=== PATIENT | female | born 1970 | race African-American/Black ===

== ENCOUNTER 2018-08-18 20:19 | Inpatient (IN) | payer BC ==
[~2018-08-18] VITALS: Ht 30.5 cm; Wt 74.9 kg
[2018-08-18] MEDS ORDERED: SODIUM CHLORIDE 0.9% 1,000 ML IVB ONE (21:27)
[2018-08-18] MEDS ORDERED: ONDANSETRON HCL 4 MG/2 ML VIAL IV ONE (21:30)
[2018-08-18] MEDS ORDERED: MEPERIDINE HCL (25 MG/ML) 1ML VIAL IV ONE (21:30)
[2018-08-18] MEDS ORDERED: ASPirin 81 mg TAB PO ONE (21:30)
[2018-08-18 22:10] LABS: Basophils # (auto) 0.1 uL; Basophils % (auto) 1.3 % (0.0-2.0); Eosinophils # (auto) 0.1 uL; Eosinophils % (auto) 1.4 % (0.0-7.0); Hematocrit 36.9 % (36.0-46.0); Hemoglobin 12.2 g/dL (12.2-16.2); Lymphocytes % (auto) 43.6 % (10.0-50.0); Mean Corpuscular Hemoglobin 30.8 pg (28.0-32.0); Mean Corpuscular Volume 93.2 fL (80.0-100.0); Monocytes # (auto) 0.4 uL; Monocytes % (auto) 5.6 % (0.0-12.0); Neutrophils # (auto) 3.3 uL; Neutrophils % (auto) 48.1 % (37.0-80.0); Nucleated Red Blood Cells % 0.2 %; Platelet Count (auto) 280 10^3/uL (140-450); Red Blood Cells 3.96 10^6/uL (4.0-5.20); Red Cell Distribution Width 14.1 % (11.8-14.3); White Blood Cell 6.9 10^3/uL (4.4-10.8)
[2018-08-18 22:19] LABS: Alanine Aminotransferase 38 U/L (13-56); Anion Gap 8 (5-15); Aspartate Aminotransferase 32 U/L (15-37); BUN/Creatinine Ratio 15.4; Blood Urea Nitrogen 14 mg/dL (7-18); Calcium 8.5 mg/dL (8.5-10.1); Carbon Dioxide 25 mmol/L (21-32); Chloride 107 mmol/L (98-107); GFR African American 84 mL/min; GFR Non-African American 70 mL/min; Glucose 83 mg/dL (74-106); Magnesium 2.3 mg/dL (1.6-2.6); Potassium 3.2 mmol/L (3.5-5.1); Sodium 140 mmol/L (136-145)
[2018-08-18 22:24] LABS: Alkaline Phosphatase 97 U/L (45-117); Bilirubin, Total 0.3 mg/dL (0.2-1.0)
[2018-08-18 22:36] LABS: INR 0.98 (0.9-1.15); Partial Thromboplastin Time 25.7 sec (23.78-33.04); Prothrombin Time 10.5 sec (9.27-12.13)
[2018-08-18 22:59] LABS: Urine Bacteria FEW /hpf (None Seen); Urine Blood Negative /uL (Negative); Urine Specific Gravity 1.005 (1.001-1.035); Urine WBC 14 /hpf (0 - 5)
[2018-08-19] MEDS ORDERED: IOHEXOL 350 MG/ML 100ML IJ ONE (00:04)
[2018-08-19] MEDS ORDERED: NITROGLYCERIN 0.4 MG SL TAB SL PRN (04:45)
[2018-08-19] MEDS ORDERED: TEMAZEPAM 15 MG CAP PO PRN (04:45)
[2018-08-19] MEDS ORDERED: ONDANSETRON HCL 4 MG/2 ML VIAL IV PRN (04:45)
[2018-08-19] MEDS ORDERED: HYDROcodone-ACET 5/325MG TAB PO PRN (04:45)
[2018-08-19] MEDS ORDERED: POTASSIUM CHL 20 Meq TABLET PO ONE (04:45)
[2018-08-19] MEDS ORDERED: ACETAMINOPHEN 325 MG TAB PO PRN (04:45)
[2018-08-19] MEDS: LEVOTHYROXINE SODIUM 25 MCG TAB PO SCH (06:51)
[2018-08-19] MEDS: cefTRIAXone 1GM/50ML D5W 50 ML IV SCH (08:48)
[2018-08-19] MEDS: ASPirin 81 mg TAB PO SCH (10:00)
[2018-08-19] MEDS: FAMOTIDINE 20 MG TAB PO SCH ×2 (10:00→21:46)
--- NOTE | 2018-08-19 21:53 | NUR ---
Telemetry admit from ER NAEEMKAREL admitted to Telemetry unit after SBAR received. Patient oriented to Aj Love, primary RN, unit, room, bed, and unit policies regarding patient care and visiting hours. Patient now on continuous telemetry monitoring, tele box # [id number] and telemetry reading on arrival to unit is sinus bradycardia. Patient weighed by bedscale and encouraged to call if they need something. All questions and concerns addressed, patient verbalized understanding.
[2018-08-19 22:00] VITALS: BP 108/71
[2018-08-20] MEDS ORDERED: AMLO5TAB13 PO (00:57)
[2018-08-20] MEDS ORDERED: COLCPOW2 PO (00:57)
[2018-08-20] MEDS ORDERED: CETI1TAB36 PO (00:57)
[2018-08-20] MEDS ORDERED: PANT40TA2 PO (00:57)
[2018-08-20 05:52] VITALS: BP 101/66
[2018-08-20 06:19] LABS: Basophils # (auto) 0.1 uL; Basophils % (auto) 1.4 % (0.0-2.0); Eosinophils # (auto) 0.2 uL; Eosinophils % (auto) 4.3 % (0.0-7.0); Hematocrit 37.6 % (36.0-46.0); Hemoglobin 12.5 g/dL (12.2-16.2); Lymphocytes # (auto) 2.2 uL; Lymphocytes % (auto) 43.3 % (10.0-50.0); Mean Corpuscular Hemoglobin 31.2 pg (28.0-32.0); Mean Corpuscular Hgb Conc. 33.2 g/dL (32.0-36.0); Mean Corpuscular Volume 93.9 fL (80.0-100.0); Monocytes # (auto) 0.3 uL; Monocytes % (auto) 6.6 % (0.0-12.0); Neutrophils # (auto) 2.2 uL; Neutrophils % (auto) 44.4 % (37.0-80.0); Nucleated Red Blood Cells % 0.1 %; Platelet Count (auto) 264 10^3/uL (140-450); Red Blood Cells 4.01 10^6/uL (4.0-5.20); Red Cell Distribution Width 14.3 % (11.8-14.3)
[2018-08-20 06:33] LABS: Anion Gap 4 (5-15); Blood Urea Nitrogen 14 mg/dL (7-18); Carbon Dioxide 28 mmol/L (21-32); Chloride 107 mmol/L (98-107); Glucose 84 mg/dL (74-106); Potassium 4.2 mmol/L (3.5-5.1); Sodium 139 mmol/L (136-145)
[2018-08-20 06:41] LABS: BUN/Creatinine Ratio 12.5; Calcium 9.4 mg/dL (8.5-10.1); GFR African American 66 mL/min; GFR Non-African American 55 mL/min
[2018-08-20] MEDS: LEVOTHYROXINE SODIUM 25 MCG TAB PO SCH (06:44)
[2018-08-20 08:00] VITALS: BP 114/68
[2018-08-20 08:39] VITALS: BP 114/68
[2018-08-20] MEDS: cefTRIAXone 1GM/50ML D5W 50 ML IV SCH (08:39)
[2018-08-20] MEDS: FAMOTIDINE 20 MG TAB PO SCH (09:57)
[2018-08-20] MEDS: ASPirin 81 mg TAB PO SCH (09:57)
[2018-08-20 12:46] VITALS: BP 110/70
--- NOTE | 2018-08-20 14:20 | NUR ---
Received report from BETH Andujar and assumed care of patient.
--- NOTE | 2018-08-20 15:44 | NUR ---
Seen by Dr House at the bedside and d'cd patient home.
[2018-08-20 16:34] VITALS: BP 121/78
--- NOTE | 2018-08-20 17:00 | NUR ---
Discharge instructions given as ordered. Encourage to follow up with PMD as instructed. All questions and concerns addressed. Patient verbalized understanding. IV removed with catheter intact, pressure dressing applied. Telemetry unit returned to [facility]. Off work note signed by Dr House given to the patient.Awaiting family for transportation.
[2018-08-20 17:19] VITALS: BP 121/78
--- NOTE | 2018-08-20 19:40 | NUR ---
Patient taken to vehicle via wheelchair with all personal belongings, accompanied by family member. No distress noted at time of departure.
== END 2018-08-20 19:51 | disposition home or self-care (01) | DRG 690 ==
LOC: ER 20:21 → TELE 08-19 04:45 → TELE-WESTW 08-19 21:46
PROVIDERS: ADMIT Nurse Practitioner; ATTEND Internal Medicine
DX: N39.0 Urinary tract infection, site not specified (principal); R07.89 Other chest pain; E03.9 Hypothyroidism, unspecified; E78.5 Hyperlipidemia, unspecified; E87.5 Hyperkalemia; E87.6 Hypokalemia; I08.0 Rheumatic disorders of both mitral and aortic valves; I12.9 Hypertensive chronic kidney disease with stage 1 through stage 4 chronic kidney disease, or unspecified chronic kidney disease; J45.909 Unspecified asthma, uncomplicated; R79.1 Abnormal coagulation profile; Z79.82 Long term (current) use of aspirin; Z82.49 Family history of ischemic heart disease and other diseases of the circulatory system; Z90.710 Acquired absence of both cervix and uterus; Z88.5 Allergy status to narcotic agent; Z91.010 Allergy to peanuts; Z88.8 Allergy status to other drugs, medicaments and biological substances; Z91.018 Allergy to other foods
CPT/HCPCS: 36415; 71045; 80048; 80053; 81001; 83735; 83880; 84443; 84484; 85025; 85379; 85610; 85730; 87086; 93005; 93306; 94761; 96361; 96374; 96375; G0378; J0696; J2405

== ENCOUNTER 2019-12-02 11:45 | Emergency (ER) | payer BC, MEDICAID ==
[~2019-12-02] VITALS: Ht 162.6 cm; Wt 68.0 kg
[~2019-12-02 11:45] MED LIST: AMLO5TAB15 PO; CETI1TAB36 PO; COLCPOW2 PO; PANT40TA2 PO
[2019-12-02] MEDS ORDERED: KETOROLAC TROMETH 60MG/2ML VIAL IM ONE (12:15)
[2019-12-02 12:23] VITALS: BP 128/96
== END 2019-12-02 13:12 | disposition home or self-care (01) ==
LOC: ER 11:45
DX: M51.17 Intervertebral disc disorders with radiculopathy, lumbosacral region (principal); J45.909 Unspecified asthma, uncomplicated; I10 Essential (primary) hypertension; G89.29 Other chronic pain; Z90.710 Acquired absence of both cervix and uterus; Z88.6 Allergy status to analgesic agent; Z88.5 Allergy status to narcotic agent; Z91.011 Allergy to milk products; Z79.899 Other long term (current) drug therapy
CPT/HCPCS: 72131; 96372; 99284; J1885

== ENCOUNTER 2020-09-16 10:53 | Emergency (ER) | payer BC, MEDICAID ==
[~2020-09-16] VITALS: Ht 162.6 cm; Wt 72.6 kg
[~2020-09-16 10:53] MED LIST changes: +AMLO-489 PO; -AMLO5TAB15 PO
[2020-09-16] MEDS ORDERED: HYDROmorphone HCL 2 MG/ML VL IV ONE (11:15)
[2020-09-16] MEDS ORDERED: SODIUM CHLORIDE 0.9% 500 ML IVB ONE (11:15)
[2020-09-16] MEDS ORDERED: ONDANSETRON HCL 4 MG/2 ML VIAL IV ONE (11:15)
[2020-09-16 11:27] LABS: Basophils # (auto) 0.1 10 ^3/uL (0-0.2); Basophils % (auto) 0.9 % (0.0-2.0); Eosinophils # (auto) 0.2 10 ^3/uL (0-0.8); Eosinophils % (auto) 2.6 % (0.0-7.0); Hematocrit 39.7 % (36.0-46.0); Hemoglobin 13.3 g/dL (12.2-16.2); Lymphocytes # (auto) 1.8 10 ^3/uL (0.4-5.4); Lymphocytes % (auto) 24.9 % (10.0-50.0); Mean Corpuscular Hemoglobin 31.1 pg (28.0-32.0); Mean Corpuscular Hgb Conc. 33.5 g/dL (32.0-36.0); Mean Corpuscular Volume 92.9 fL (80.0-100.0); Monocytes # (auto) 0.3 10 ^3/uL (0-1.3); Monocytes % (auto) 4.2 % (0.0-12.0); Neutrophils % (auto) 67.4 % (37.0-80.0); Nucleated Red Blood Cells % 0.2 %; Platelet Count (auto) 292 10^3/uL (140-450); Red Blood Cells 4.28 10^6/uL (4.0-5.20); Red Cell Distribution Width 14.1 % (11.8-14.3); White Blood Cell 7.3 10^3/uL (4.4-10.8)
[2020-09-16 11:46] LABS: Potassium 3.8 mmol/L (3.5-5.1)
[2020-09-16 11:53] LABS: Albumin 4.3 g/dL (3.4-5.0); BUN/Creatinine Ratio 14.6; Bilirubin, Total 0.4 mg/dL (0.2-1.0); Calcium 9.3 mg/dL (8.5-10.1); Total Protein 8.3 g/dL (6.4-8.2)
[2020-09-16 12:02] LABS: Urine Bacteria FEW /hpf (None Seen); Urine Blood 3+ /uL (Negative); Urine Specific Gravity 1.018 (1.001-1.035); Urine WBC 814 /hpf (0 - 5); Urine WBC Clumps PRESENT /hpf (None Seen)
[2020-09-16] MEDS ORDERED: cefTRIAXone 1GM/50ML D5W 50 ML IV ONE (12:30)
[2020-09-16 12:40] VITALS: BP 120/77
== END 2020-09-16 12:50 | disposition home or self-care (01) ==
LOC: ER 10:53
DX: N39.0 Urinary tract infection, site not specified (principal); I10 Essential (primary) hypertension; J45.909 Unspecified asthma, uncomplicated; Z90.710 Acquired absence of both cervix and uterus; Z88.6 Allergy status to analgesic agent; Z88.8 Allergy status to other drugs, medicaments and biological substances; Z91.018 Allergy to other foods
CPT/HCPCS: 36415; 74176; 80053; 81001; 83690; 85025; 96361; 96374; 99285; J1170; J2405; J7040; 93005

== ENCOUNTER → 2020-09-23 | Outpatient (CLI) | payer BC, MEDICAID | END | disposition home or self-care (01) | LOC: LAB 11:42 | PROVIDERS: ATTEND Internal Medicine Pulmonary Disease | DX: Z01.812 Encounter for preprocedural laboratory examination (principal); Z20.822 Contact with and (suspected) exposure to COVID-19 | CPT/HCPCS: 36415; 87426 ==

== ENCOUNTER → 2020-09-24 | Outpatient (CLI) | payer BC, MEDICAID ==
[~2020-09-24] MED LIST changes: +ALBUTEROL SULF 2.5 MG/0.5ML(0.5%) NEB SOLN ONE
== END | disposition home or self-care (01) ==
LOC: RT 08:34
PROVIDERS: ATTEND Internal Medicine Pulmonary Disease
DX: R06.00 Dyspnea, unspecified (principal)
CPT/HCPCS: 94060

== ENCOUNTER 2021-01-07 08:54 | Emergency (ER) | payer BC, MEDICAID ==
[~2021-01-07] VITALS: Ht 162.6 cm; Wt 73.5 kg
[~2021-01-07 08:54] MED LIST changes: -ALBUTEROL SULF 2.5 MG/0.5ML(0.5%) NEB SOLN ONE
[2021-01-07 09:16] VITALS: BP 160/77
== END 2021-01-07 10:32 | disposition home or self-care (01) ==
LOC: ER 08:54
DX: M75.32 Calcific tendinitis of left shoulder (principal); J45.909 Unspecified asthma, uncomplicated; I10 Essential (primary) hypertension; Z90.710 Acquired absence of both cervix and uterus; Z88.6 Allergy status to analgesic agent; Z88.8 Allergy status to other drugs, medicaments and biological substances; Z91.018 Allergy to other foods
CPT/HCPCS: 73030

== ENCOUNTER 2021-08-04 01:29 | Emergency (ER) | payer BC, MEDICAID ==
[~2021-08-04] VITALS: Ht 170.2 cm; Wt 77.1 kg
[2021-08-04 01:58] LABS: Basophils # (auto) 0.1 10 ^3/uL (0-0.2); Basophils % (auto) 1.3 % (0.0-2.0); Eosinophils # (auto) 0.3 10 ^3/uL (0-0.8); Eosinophils % (auto) 4.8 % (0.0-7.0); Hematocrit 37.6 % (36.0-46.0); Hemoglobin 12.7 g/dL (12.2-16.2); Lymphocytes % (auto) 42.7 % (10.0-50.0); Mean Corpuscular Hemoglobin 31.1 pg (28.0-32.0); Mean Corpuscular Hgb Conc. 33.7 g/dL (32.0-36.0); Mean Corpuscular Volume 92.4 fL (80.0-100.0); Monocytes # (auto) 0.4 10 ^3/uL (0-1.3); Monocytes % (auto) 5.5 % (0.0-12.0); Neutrophils # (auto) 3.3 10 ^3/uL (1.6-8.6); Neutrophils % (auto) 45.7 % (37.0-80.0); Nucleated Red Blood Cells % 0.1 %; Red Blood Cells 4.07 10^6/uL (4.0-5.20); Red Cell Distribution Width 14.5 % (11.8-14.3); White Blood Cell 7.1 10^3/uL (4.4-10.8)
[2021-08-04 02:07] LABS: Albumin 3.8 g/dL (3.4-5.0); BUN/Creatinine Ratio 17.6; Calcium 8.6 mg/dL (8.5-10.1); Potassium 4.1 mmol/L (3.5-5.1)
[2021-08-04 02:09] LABS: Salicylate < 1.7 mg/dL (2.8-20.0)
[2021-08-04 02:10] LABS: Bilirubin, Total 0.2 mg/dL (0.2-1.0); Total Protein 7.9 g/dL (6.4-8.2)
[2021-08-04 02:25] LABS: Amphetamine Screen, Urine NEGATIVE (NEGATIVE); Barbiturate Scree,Urine NEGATIVE (NEGATIVE); Benzodiazephine Screen, Urine NEGATIVE (NEGATIVE); Cannabinoid Screen, Urine NEGATIVE (NEGATIVE); Opiate Scree,Urine NEGATIVE (NEGATIVE); Phencyclidine Screen, Urine NEGATIVE (NEGATIVE)
[2021-08-04 02:28] LABS: Cocaine Screen, Urine NEGATIVE (NEGATIVE)
[2021-08-04 02:46] LABS: Acetaminophen < 2.0 ug/mL (10-30)
[2021-08-04 02:51] LABS: Urine Bacteria FEW /hpf (None Seen); Urine Blood Negative /uL (Negative); Urine Specific Gravity 1.007 (1.001-1.035); Urine WBC 5 /hpf (0 - 5)
[2021-08-04 07:28] VITALS: BP 139/86
== END 2021-08-04 07:39 | disposition home or self-care (01) ==
LOC: EDUNIT# 01:29 → EDBD 01:29 → ER 01:33
DX: R41.82 Altered mental status, unspecified (principal); J45.909 Unspecified asthma, uncomplicated; I10 Essential (primary) hypertension; Z90.710 Acquired absence of both cervix and uterus; Z88.6 Allergy status to analgesic agent; Z88.8 Allergy status to other drugs, medicaments and biological substances
CPT/HCPCS: 36415; 70450; 71045; 80053; 80307; 80320; 80329; 81001; 85025; 93005

== ENCOUNTER 2023-01-08 06:55 | Day surgery (SDC) | payer BC, MEDICAID ==
[~2023-01-08] VITALS: Ht 162.6 cm; Wt 69.9 kg
[~2023-01-08 06:55] MED LIST changes: +ALBUAER3 IN; -AMLO-489 PO; -COLCPOW2 PO; +FLUT1AER17 IN; +LOSA100T58 PO
[2023-01-08] MEDS ORDERED: ROCURONIUM 10MG/ML 10ML VIAL IV ONE (07:07)
[2023-01-08] MEDS ORDERED: SUCCINYLCHOLINE CHLORIDE 20 MG/ML 10ML VIAL IV ONE (07:07)
[2023-01-08] MEDS ORDERED: MIDAZOLAM HCL 2MG/2ML 2ml VIAL (1mg/ml) ONE (07:10)
[2023-01-08] MEDS ORDERED: fentaNYL CITRATE 100 MCG/2 ML VL ONE (07:10)
[2023-01-08] MEDS ORDERED: MEPERIDINE HCL (50 MG/ML) 1 ML VIAL ONE (07:11)
[2023-01-08] MEDS ORDERED: PROPOFOL 10 MG/ML 20 ML IV ONE (07:11)
[2023-01-08] MEDS ORDERED: SODIUM CHLORIDE LOCK 10 ML ONE (07:11)
[2023-01-08] MEDS ORDERED: ONDANSETRON HCL 4 MG/2 ML VIAL ONE (07:11)
[2023-01-08] MEDS ORDERED: BUPIVACAINE 0.25% INJ 50ML VIAL ONE (07:22)
[2023-01-08] MEDS ORDERED: ceFAZolin 1GM/50ML 100 ML IV ONE (07:32)
[2023-01-08] MEDS ORDERED: METOCLOPRAMIDE HCL 5MG/ml INJ 2ml VIAL IV PRN (07:45)
[2023-01-08] MEDS ORDERED: ACCU-CHEK COMFORT CURVE STRIP VI ONE (07:45)
[2023-01-08] MEDS ORDERED: MORPHINE SULFATE INJ 2 MG/ml SYRG IV PRN (07:45)
[2023-01-08] MEDS ORDERED: HYDROmorphone HCL 2 MG/ML VL/or syr IV PRN ×2 (07:45)
[2023-01-08] MEDS ORDERED: methylPREDNISolone ACETATE 80 MG/ML VL ONE (09:18)
[2023-01-08] MEDS ORDERED: MEPERIDINE HCL (25 MG/ML) 1ML VIAL IV PRN (10:00)
[2023-01-08 10:55] VITALS: BP 130/74; PULSE 60; RESP 12; O2SAT 99
== END 2023-01-08 10:55 | disposition home or self-care (01) ==
LOC: SUR 06:55
PROVIDERS: ATTEND Orthopaedic Surgery Adult Reconstructive Orthopaedic Surgery
DX: S83.241A Other tear of medial meniscus, current injury, right knee, initial encounter (principal); S83.281A Other tear of lateral meniscus, current injury, right knee, initial encounter; M17.11 Unilateral primary osteoarthritis, right knee; E11.9 Type 2 diabetes mellitus without complications; Z79.84 Long term (current) use of oral hypoglycemic drugs; M67.51 Plica syndrome, right knee; X58.XXXA Exposure to other specified factors, initial encounter; Y93.89 Activity, other specified; Y92.89 Other specified places as the place of occurrence of the external cause; Y99.8 Other external cause status
CPT/HCPCS: 29880; 82962; J0330; J0690; J1040; J2175; J2250; J2405; J2704; J2765; J3010; J3490

== ENCOUNTER 2023-04-21 18:08 | Emergency (ER) | payer BC, MEDICAID ==
[~2023-04-21] VITALS: Ht 162.6 cm; Wt 68.9 kg
[2023-04-21] MEDS ORDERED: CYCLOBENZAPRINE HCL 10 MG TAB PO ONE (20:00)
[2023-04-21 20:43] VITALS: BP 118/76; PULSE 65; RESP 17; TEMP 98.3; O2SAT 100
[2023-04-21] MEDS ORDERED: HYDR1TAB97 PO (22:55)
[2023-04-21] MEDS ORDERED: HYDROcodone-ACET 5/325MG TAB PO ONE (23:00)
== END 2023-04-22 00:10 | disposition home or self-care (01) ==
LOC: EDBD 18:08 → ER 18:08
DX: M54.59 Other low back pain (principal); F17.210 Nicotine dependence, cigarettes, uncomplicated; F12.10 Cannabis abuse, uncomplicated; J45.909 Unspecified asthma, uncomplicated; I10 Essential (primary) hypertension; Z88.6 Allergy status to analgesic agent; Z91.010 Allergy to peanuts
CPT/HCPCS: 72131

== ENCOUNTER 2023-11-15 20:23 | Emergency (ER) | payer BC, MEDICAID ==
[~2023-11-15] VITALS: Ht 172.7 cm; Wt 80.0 kg
[~2023-11-15 20:23] MED LIST changes: +HYDR1TAB97 PO; +LOSA-535 PO; -LOSA100T58 PO
[2023-11-15 20:49] VITALS: PULSE 60; RESP 16; TEMP 97.8; O2SAT 96
[2023-11-15] MEDS: SODIUM CHLORIDE 0.9% 1,000 ML IV ONE (21:12)
[2023-11-15 21:34] LABS: Basophils # (auto) 0.1 10 ^3/uL (0-0.2); Basophils % (auto) 0.9 % (0.0-2.0); Eosinophils # (auto) 0.1 10 ^3/uL (0-0.8); Hematocrit 36.9 % (36.0-46.0); Hemoglobin 12.6 g/dL (12.2-16.2); Lymphocytes # (auto) 2.6 10 ^3/uL (0.4-5.4); Mean Corpuscular Hemoglobin 32.3 pg (28.0-32.0); Mean Corpuscular Hgb Conc. 34.1 g/dL (32.0-36.0); Mean Corpuscular Volume 94.7 fL (80.0-100.0); Monocytes # (auto) 0.4 10 ^3/uL (0-1.3); Monocytes % (auto) 4.8 % (0.0-12.0); Neutrophils # (auto) 5.5 10 ^3/uL (1.6-8.6); Neutrophils % (auto) 63.3 % (37.0-80.0); Nucleated Red Blood Cells % 0.1 %; Red Blood Cells 3.89 10^6/uL (4.0-5.20); Red Cell Distribution Width 13.5 % (11.8-14.3); White Blood Cell 8.6 10^3/uL (4.4-10.8)
[2023-11-15 21:36] LABS: Anion Gap 10 (5-15); Carbon Dioxide 23 mmol/L (20-30); Chloride 111 mmol/L (98-107); Potassium 3.3 mmol/L (3.5-5.1); Sodium 144 mmol/L (136-145)
[2023-11-15 21:37] LABS: Calcium 9.5 mg/dL (8.5-10.1)
[2023-11-15 21:42] LABS: BUN/Creatinine Ratio 12.7 (10.0-20.0); Blood Alcohol 126.5 mg/dL (<10); Blood Urea Nitrogen 13 mg/dL (9-23); Glucose 90 mg/dL (74-106)
[2023-11-15 21:47] LABS: Urine Bacteria None Seen /hpf (None Seen)
[2023-11-15 21:57] LABS: Urine Blood TRACE /uL (Negative); Urine Clarity Clear (Clear); Urine Color Colorless (Yellow); Urine Protein, UAD Negative (Negative); Urine Specific Gravity 1.005 (1.001-1.035); Urine Urobilinogen Normal (Negative); Urine WBC 1 /hpf (0 - 5)
[2023-11-15 22:04] LABS: Amphetamine Screen, Urine Neg (NEGATIVE); Barbiturate Scree,Urine Neg (NEGATIVE); Benzodiazephine Screen, Urine Neg (NEGATIVE); Cocaine Screen, Urine Neg (NEGATIVE); Opiate Scree,Urine Neg (NEGATIVE)
[2023-11-15 22:05] LABS: Cannabinoid Screen, Urine Neg (NEGATIVE); Phencyclidine Screen, Urine Neg (NEGATIVE)
[2023-11-15] MEDS: POTASSIUM CHL 20 Meq TABLET PO ONE (23:03)
[2023-11-15] MEDS ORDERED: MORPHINE SULFATE INJ 2 MG/ml SYRG IV ONE (23:15)
[2023-11-15] MEDS: ONDANSETRON HCL 4 MG/2 ML VIAL IV ONE (23:15)
[2023-11-16] MEDS ORDERED: KETOROLAC TROMETH 30 MG/ML 1ML VIAL IV ONE
[2023-11-16] MEDS: FAMOTIDINE (10MG/ML) 2ML VL IV ONE (00:06)
[2023-11-16] MEDS: HYDROcodone-ACET 5/325MG TAB PO ONE (00:27)
[2023-11-16 00:50] VITALS: BP 108/65; PULSE 58; RESP 14; O2SAT 99
== END 2023-11-16 00:51 | disposition home or self-care (01) ==
LOC: EDBD 20:23 → EDUNIT# 20:23 → ER 20:23
DX: F10.129 Alcohol abuse with intoxication, unspecified (principal); R07.89 Other chest pain; J44.9 Chronic obstructive pulmonary disease, unspecified; I10 Essential (primary) hypertension; F17.210 Nicotine dependence, cigarettes, uncomplicated; Z79.899 Other long term (current) drug therapy; Z91.018 Allergy to other foods; Z88.8 Allergy status to other drugs, medicaments and biological substances; Z88.5 Allergy status to narcotic agent; Y90.6 Blood alcohol level of 120-199 mg/100 ml
CPT/HCPCS: 36415; 70450; 80048; 80307; 80320; 81001; 84484; 85025; 93005; 96361; 96374; 99285; J3490; J7030; J2405